=== PATIENT | male | born 1945 | race African-American/Black ===

== ENCOUNTER 2021-07-29 23:26 | Emergency (ER) | payer MEDICARE, OTHER, SELFPAY ==
--- NOTE | ~2021-07-29 | XR_ITS ---
EXAMINATION: XR chest 1V portable DATE: 07/29/2021 23:59 INDICATION: Syncope. Hypertension. TECHNIQUE: A single frontal view of the chest was obtained. COMPARISON: Chest CT 07/30/2021 FINDINGS: The chest demonstrates clear lungs without pneumonia, pleural effusion, or pneumothorax. Th e heart size is normal. IMPRESSION: 1. No acute cardiopulmonary disease. Reviewed, dictated and finalized at location A. ICAL ENGINEERING PROFESSOR
--- NOTE | ~2021-07-29 | CT_ITS ---
EXAMINATION: CTA chest PE protocol DATE: 07/30/2021 02:02 INDICATION: Syncope. TECHNIQUE: Computed tomography angiography (CTA) of the chest was performed with 100 mL Omnipaque-350 intravenous contrast timed to evaluate the pulmonary arteries. Coronal maximum intensity projection 3D-reconstructions were created by the technologist. Automated exposure control and iterative reconst ruction technique were employed. The dose-length product was 506.95 mGy-cm. COMPARISON: None. FINDINGS: There is mild emphysema. There is mild atelectasis bilaterally. No pleural effusion. The he art size is normal. There are coronary artery calcifications. No pericardial effusion. There is no pu lmonary embolus. A calcified paraesophageal lymph node is consistent with old granulomatous disease. There is mild thoracic spondylosis. There is a benign bone island in T8 vertebral body. IMPRESSION: 1. No pulmonary embolus. 2. Mild emphysema. Reviewed, dictated and finalized at location A. ER SHOVELER
[2021-07-29 23:33] VITALS: BP 120/73; PULSE 88; RESP 20; TEMP 36.1; O2SAT 100
[2021-07-29 23:39] VITALS: PULSE 88
--- NOTE | 2021-07-29 23:41 | PC.NURSE ---
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
--- NOTE | 2021-07-29 23:44 | ECG_ITS ---
Measurements Intervals [place] Rate: 83 P: 39 MS: 172 QRS: 18 QRSD: 96 T: 183 QT: 387 QTc: 457 Interpretive Statements SINUS RHYTHM LEFT VENTRICULAR HYPERTROPHY AND ST-T CHANGE CANNOT RULE OUT SEPTAL INFARCT, AGE INDETERMINATE ST-T WAVE ABNORMALITY IN ANTEROLAT/HIGH LAT LEADS- CONSIDER ISCHEMIA BASELINE ARTIFACT- I, II, AVR ABNORMAL ECG Electronically Signed On 07-30-2021 17:18:01 INSTRUCTIONAL MATERIALS DIRECTOR by Owen Uribe D.O.
[2021-07-30] MEDS: SODIUM CHLORIDE 0.9% IV 1,000 ML 999 ML IV CONT (00:25)
[2021-07-30 00:32] VITALS: BP 135/81; PULSE 94; RESP 20; O2SAT 97
[2021-07-30 00:39] LABS: INR 1.1; Prothrombin Time 13.7 Seconds (11.1-14.7)
[2021-07-30 00:40] LABS: Partial Thromboplastin Time 21.4 SECONDS (22.3-36.8)
[2021-07-30 00:42] LABS: Basophils Percent Auto 0.4 % (0.2-1.2); Eosinophils Absolute Auto 0.2 K/mm3 (0-0.3); Eosinophils Percent Auto 2.2 % (0-4.4); Hemoglobin 12.8 g/dL (14.0-18.0); Immature Granulocyte Absolute 0.02 K/mm3 (0.00-0.031); Immature Granulocyte Percent A 0.2 % (0-0.5); Lymphocytes Absolute Auto 1.76 K/mm3 (0.9-3.2); Lymphocytes Percent Auto 21.8 % (18.3-44.2); Mean Corpuscular Hemoglobin 30.4 pg (26-34); Mean Platelet Volume 10.3 fl (7.4-10.4); Monocytes Absolute Auto 0.7 K/mm3 (0.1-0.6); Monocytes Percent Auto 8.4 % (2.6-8.5); Neutrophils Absolute Auto 5.4 K/mm3 (1.3-6.7); Platelet Count Result 232 k/mm3 (150-375); Red Blood Count 4.21 M/mm3 (4.6-6.20); White Blood Count 8.1 K/mm3 (4.5-10.0)
[2021-07-30 00:43] LABS: D Dimer 0.94 ug/mL (<0.48); Lactic Acid Reflex 1.9 mmol/L (0.7-2.1)
[2021-07-30 00:44] LABS: Alanine Aminotransferase 24 U/L (4-50); Albumin Level 4.1 g/dL (3.5-5.1); Alkaline Phosphatase 66 U/L (38-126); Anion Gap 5 mmol/L (8-16); Aspartate Amino Transferase 31 U/L (17-59); Bilirubin,Total 0.3 mg/dL (0.2-1.3); Blood Urea Nitrogen 29 mg/dL (9-20); Calcium 8.8 mg/dL (8.4-10.2); Carbon Dioxide 25 mmol/L (22-30); Chloride 109 mmol/L (98-107); Estimated Glomerular Filt Rate 50; Glucose 135 mg/dL (65-110); Magnesium 2.2 mg/dL (1.6-2.3); Potassium 4.6 mmol/L (3.4-5.0); Sodium 139 mmol/L (137-145)
[2021-07-30 00:55] LABS: NT Pro B Type Natriuretic Pept 319 pg/mL (5-100); Troponin I 0.017 ng/mL (0.000-0.034)
--- NOTE | 2021-07-30 02:15 | ED.GENADULT ---
HPI - General Adult General Chief complaint: Syncope Stated complaint: syncope Time Seen by Provider: 07/29/21 23:44 History of Present Illness HPI narrative: Patient 76-year-old gentleman presents emerged from with chief complaint of syncope. 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 Patient denies loss of bowel or bladder function denies chest pain denies shortness of breath. Patient states that he has had a stress test in the last several years report he has had an EKG done at another facility the patient states currently he feels back to normal. Related Data Allergies Allergy/AdvReac Type Severity Reaction Status Date / Time No Known Allergies Allergy Verified 07/29/21 23:41 Review of Systems Review of Systems: A 10 system review of systems was completed on the patient and is negative except for what is stated in the HPI. Nursing and ancillary documentation was reviewed. Exam Narrative: GENERAL: Well-appearing, well-nourished, and in no acute distress. HEAD: Normocephalic, atraumatic. EYES: PERRLA and EOMI. ENT: Nares clear, no rhinorrhea or epistaxis. Mucous membranes moist. NECK: Supple. CHEST: Clear to auscultation. No respiratory distress. HEART: Regular rate and rhythm. No murmur heard. Normal peripheral pulses. ABDOMEN: Soft, nontender, nondistended, normal active bowel sounds. EXTREMITIES: Normal range of motion. No edema. SKIN: Warm, dry, no rash. NEURO: No focal deficits. Alert and oriented x3. PSYCH: Normal mood and affect. Course Course Emergency Course: EKG is sinus rhythm rate of 83 T wave inversions and ST depression. Patient's troponin is 0.017 BNP is 319. Patient had a elevated D-dimer patient does have a creatinine of 1.4. A CTA of the chest will be obtained to determine if there is a pulmonary embolism also a 3-hour troponin will be obtained. Vital Signs Vital signs: Vital Signs Temperature 36.1 C L 07/29/21 23:33 Pulse Rate 88 07/29/21 23:33 Respiratory Rate 20 07/29/21 23:33 Blood Pressure 120/73 07/29/21 23:33 Pulse Oximetry 100 07/29/21 23:33 Temperature 36.1 C L 07/29/21 23:33 Pulse Rate 79 07/30/21 03:50 Respiratory Rate 16 07/30/21 03:50 Blood Pressure 117/80 07/30/21 03:50 Pulse Oximetry 97 07/30/21 03:50 Medical Decision Making Vital Signs Vital Signs: Vital Signs Temperature 36.1 C L 07/29/21 23:33 Pulse Rate 88 07/29/21 23:33 Respiratory Rate 20 07/29/21 23:33 Blood Pressure 120/73 07/29/21 23:33 Pulse Oximetry 100 07/29/21 23:33 Temperature 36.1 C L 07/29/21 23:33 Pulse Rate 79 07/30/21 03:50 Respiratory Rate 16 07/30/21 03:50 Blood Pressure 117/80 07/30/21 03:50 Pulse Oximetry 97 07/30/21 03:50 Lab Data Result diagrams: 07/30/21 00:08 07/30/21 00:07 Labs: Lab Results 07/30/21 07/30/21 07/30/21 Range/Units 00:07 00:07 00:07 WBC (4.5-10.0) K/mm3 RBC (4.6-6.20) M/mm3 Hgb (14.0-18.0) g/dL Hct (42.0-52.0) % MCV (80-100) fl MCH (26-34) pg MCHC (32-36) g/dl RDW (11.5-14.5) % Plt Count (150-375) k/mm3 MPV (7.4-10.4) fl Immature Gran % (Auto) (0-0.5) % Neut % (Auto) (45.5-73.1) % Lymph % (Auto) (18.3-44.2) % [place] % (Auto) (2.6-8.5) % Eos % (Auto) (0-4.4) % Baso % (Auto) (0.2-1.2) % Lymph # (Auto) (0.9-3.2) K/mm3 [place] # (Auto) (0.1-0.6) K/mm3 Eos # (Auto) (0-0.3) K/mm3 Baso # (Auto) (0.0-0.1) K/mm3 Abs Immat Gran (auto) (0.00-0.031) K/mm3 Absolute Neuts (auto) (1.3-6.7) K/mm3 Absolute Nucleated RBC (0.0-0.012) K/mm3 Nucleated RBC % (0.0-0.2) % PT 13.7 (11.1-14.7) Seconds INR 1.1 APTT 21.4 L (22.3-36.8) SECONDS D-Dimer 0.94 H (<0.48) ug/mL Sodium 139 (137-145) mmol/L Potassium 4.6 (3.4-5.0) mmol/L Chloride 109 H (98-107) mmol/L Ca
[2021-07-30 02:23] VITALS: BP 135/82; PULSE 90; RESP 17; O2SAT 95
[2021-07-30 02:51] VITALS: BP 120/73; PULSE 84; RESP 20; O2SAT 97
[2021-07-30 03:05] LABS: Add Urine Microscopic? YES; Appearance Urine Clear (Clear); Bilirubin Urine Negative (Negative); Blood Urine Negative (Negative); Color Urine Yellow (Yellow); Glucose Urine UA 3+ mg/dL (Negative); Ketones Urine Negative (Negative); Leukocyte Esterase Ur Negative LEU/UL (Negative); Mucus Urine Rare /lpf; Nitrate Urine Negative (Negative); Protein Urine Negative (Negative); RBC Urine 0-2 /hpf (0-2); Squamous Epithelial Cell Urine Rare /hpf (Few); Urobilinogen Urine Negative mg/dL (<2.0); WBC Urine 0-3 /hpf
[2021-07-30 03:25] LABS: Specific Grav Ur 1.038 (1.001-1.035)
[2021-07-30 03:50] VITALS: BP 117/80; PULSE 79; RESP 16; O2SAT 97
[2021-07-30 03:57] LABS: Troponin I 0.016 ng/mL (0.000-0.034)
== END 2021-07-30 04:32 | disposition home or self-care (01) ==
PROVIDERS: Emergency Provider Emergency Medicine
DX: R55 Syncope and collapse (principal); R79.1 Abnormal coagulation profile
CPT/HCPCS: 36415; 71045; 71275; 80053; 81001; 83605; 83735; 83880; 84484; 85025; 85380; 85610; 85730; 93005; 99284; J7030; Q9967